=== PATIENT | male | born 1975 | race Two or more races ===

== ENCOUNTER 2024-12-27 07:47 | Emergency (ER) | payer BC, OTHER ==
[~2024-12-27] VITALS: Ht 175.3 cm; Wt 92.0 kg
[2024-12-27 08:14] VITALS: BP 128/89; PULSE 90; RESP 16; TEMP 97.5; O2SAT 97
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
[2024-12-27] MEDS: ACETAMINOPHEN 500 MG TAB or CAP PO ONE (08:20)
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
== END 2024-12-27 08:51 | disposition home or self-care (01) ==
LOC: ER 07:47 → EDBD 07:47 → ER 08:51
DX: S16.1XXA Strain of muscle, fascia and tendon at neck level, initial encounter (principal); S40.012A Contusion of left shoulder, initial encounter; V89.2XXA Person injured in unspecified motor-vehicle accident, traffic, initial encounter; Y93.89 Activity, other specified; Y92.488 Other paved roadways as the place of occurrence of the external cause; Y99.8 Other external cause status
CPT/HCPCS: 72040; 73000